=== PATIENT | male | born 1945 | race Caucasian/White ===

== ENCOUNTER → 2017-10-05 10:01 | Outpatient (CLI) | payer OTHER, SELFPAY ==
[2017-08-17 11:42] VITALS: TEMP 36.1
[2017-10-05 10:50] LABS: Add Manual Diff / Slide Review NO; Basophils Percent Auto 1.2 % (0-2); Eosinophils Percent Auto 2.9 % (2-4); Hematocrit 45.6 % (41-53); Hemoglobin 15.3 g/dL (13.5-17.5); Mean Corpuscular HGB Conc 33.6 % (30-36); Mean Corpuscular Hemoglobin 32.6 PG (26-34); Mean Corpuscular Volume 96.9 fL (80-100); Monocytes Percent Auto 11.7 % (3-14); Neutrophils Absolute Auto 2300 /uL (3000-5900); Neutrophils Percent Auto 63.2 % (50-75); Platelet Count 141 X10^3/uL (150-400); Red Cell Distribution Width 14.2 % (11.6-14.8); White Blood Cell Count 3.7 X10^3/uL (4.5-11.0)
[2017-10-05 11:19] LABS: Alanine Aminotransferase 36 IU/L (21-72); Albumin 4.1 g/dL (3.5-5.0); Albumin Globulin Ratio 1.8 (1.0-2.8); Alkaline Phosphatase 43 U/L (38-126); Aspartate Aminotransferase 39 IU/L (17-59); Blood Urea Nitrogen 22 mg/dL (9-20); Calcium 8.9 mg/dL (8.4-10.2); Carbon Dioxide 31 mmol/L (22-32); Chloride 102 mmol/L (98-107); Estimated Glomerular Filt Rate > 60.0 mL/min (>60); Globulin 2.3 g/dL (1.7-4.1); Glucose 97 mg/dL (80-110); HEMOLYSIS < 15 (0-50); Potassium 4.7 mmol/L (3.4-5.1); Sodium 141 mmol/L (137-145); Total Protein 6.4 g/dL (6.3-8.2)
[2017-10-07 08:19] LABS: Miscellaneous to Univ of WA SEE SEPERATE REPORT
== END ==
PROVIDERS: Family Provider Family Medicine; PCP Family Medicine; Visit Provider Nurse Practitioner Gerontology
DX: C92.10 Chronic myeloid leukemia, BCR/ABL-positive, not having achieved remission (principal)
CPT/HCPCS: 36415; 80053; 81206; 85025

== ENCOUNTER → 2017-11-16 10:47 | Outpatient (CLI) | payer OTHER, SELFPAY ==
[2017-11-19 09:24] LABS: Miscellaneous to Univ of WA SEE SEPERATE REPORT
== END ==
PROVIDERS: Family Provider Family Medicine; PCP Family Medicine; Visit Provider Nurse Practitioner Gerontology
DX: C92.10 Chronic myeloid leukemia, BCR/ABL-positive, not having achieved remission (principal)
CPT/HCPCS: 36415; 81206

== ENCOUNTER → 2017-12-15 09:26 | Outpatient (CLI) | payer OTHER, SELFPAY ==
[2017-12-18 12:55] LABS: Miscellaneous to Univ of WA SEE SEPERATE REPORT
== END ==
PROVIDERS: Family Provider Family Medicine; PCP Family Medicine; Visit Provider Nurse Practitioner Gerontology
DX: C92.10 Chronic myeloid leukemia, BCR/ABL-positive, not having achieved remission (principal)
CPT/HCPCS: 36415; 81206

== ENCOUNTER → 2018-03-01 10:52 | Outpatient (CLI) | payer OTHER, SELFPAY ==
--- NOTE | 2018-02-26 15:09 | ONC.SCHED ---
DR PERDUE ORDERED BRCA TESTING FOR 03/01/18. TESTING WAS DONE IN NOVEMBER AT . DR. MUNOZ PUT OFF UNTIL MARCH WHEN ACTUALLY DUE
[2018-03-01 12:02] LABS: Add Manual Diff / Slide Review NO; Basophils Percent Auto 1.3 % (0-2); Eosinophils Percent Auto 2.6 % (2-4); Hematocrit 45.4 % (41-53); Hemoglobin 15.5 g/dL (13.5-17.5); Lymphocytes Percent Auto 21.9 % (25-40); Mean Corpuscular HGB Conc 34.2 % (30-36); Mean Corpuscular Hemoglobin 34.2 PG (26-34); Mean Corpuscular Volume 100.2 fL (80-100); Monocytes Percent Auto 12.4 % (3-14); Neutrophils Absolute Auto 2400 /uL (3000-5900); Neutrophils Percent Auto 61.8 % (50-75); Platelet Count 164 X10^3/uL (150-400); Red Blood Cell Count 4.54 X10^6/uL (4.5-5.9); Red Cell Distribution Width 14.4 % (11.6-14.8); White Blood Cell Count 3.9 X10^3/uL (4.5-11.0)
[2018-03-01 12:37] LABS: Alanine Aminotransferase 37 IU/L (21-72); Albumin 4.3 g/dL (3.5-5.0); Alkaline Phosphatase 44 U/L (38-126); Aspartate Aminotransferase 34 IU/L (17-59); Bilirubin Total 0.6 mg/dL (0.2-1.3); Blood Urea Nitrogen 16 mg/dL (9-20); Calcium 9.2 mg/dL (8.4-10.2); Carbon Dioxide 30 mmol/L (22-32); Chloride 101 mmol/L (98-107); Estimated Glomerular Filt Rate > 60.0 mL/min (>60); Globulin 2.2 g/dL (1.7-4.1); Glucose 101 mg/dL (80-110); HEMOLYSIS 26 (0-50); Potassium 4.9 mmol/L (3.4-5.1); Sodium 139 mmol/L (137-145); Total Protein 6.5 g/dL (6.3-8.2)
[2018-03-01 14:35] LABS: Thyroid Stimulating Hormone 2.71 uIU/mL (0.47-4.68)
[2018-03-10 14:58] LABS: Miscellaneous to Univ of WA SEE SEPERATE REPORT
== END ==
PROVIDERS: Internal Medicine Hematology & Oncology; Family Provider Family Medicine; PCP Family Medicine
DX: C92.11 Chronic myeloid leukemia, BCR/ABL-positive, in remission (principal); E29.1 Testicular hypofunction; R97.20 Elevated prostate specific antigen [PSA]
CPT/HCPCS: 36415; 80053; 81206; 84443; 85025

== ENCOUNTER → 2018-06-30 08:58 | Outpatient (CLI) | payer OTHER, SELFPAY ==
[2018-06-30 09:41] LABS: Add Manual Diff / Slide Review NO; Basophils Absolute Auto 100 /uL (0-100); Basophils Percent Auto 1.4 % (0-2); Eosinophils Absolute Auto 200 /uL (0-450); Eosinophils Percent Auto 5.9 % (2-4); Hematocrit 47.9 % (41-53); Hemoglobin 15.8 g/dL (13.5-17.5); Lymphocytes Absolute Auto 800 /uL (1100-4500); Lymphocytes Percent Auto 19.5 % (25-40); Mean Corpuscular Hemoglobin 32.5 PG (26-34); Mean Corpuscular Volume 98.3 fL (80-100); Monocytes Absolute Auto 500 /uL (0-900); Neutrophils Absolute Auto 2400 /uL (1500-7000); Neutrophils Percent Auto 60.2 % (50-75); Platelet Count 178 X10^3/uL (150-400); Red Blood Cell Count 4.88 X10^6/uL (4.5-5.9); Red Cell Distribution Width 14.8 % (11.6-14.8); White Blood Cell Count 3.9 X10^3/uL (4.5-11.0)
[2018-06-30 09:53] LABS: Alanine Aminotransferase 33 IU/L (21-72); Albumin 4.2 g/dL (3.5-5.0); Alkaline Phosphatase 44 U/L (38-126); Aspartate Aminotransferase 32 IU/L (17-59); Bilirubin Total 0.8 mg/dL (0.2-1.3); Bilirubin Unconjugated 0.5 mg/dL (0.0-1.1); Globulin 2.1 g/dL (1.7-4.1); HEMOLYSIS 17 (0-50); Total Protein 6.3 g/dL (6.3-8.2)
[2018-07-03 18:56] LABS: Testosterone Free 70.5 pg/mL (30.0-135.0); Testosterone Total 554 ng/dL (250-1100)
== END ==
PROVIDERS: Family Provider Family Medicine; PCP Family Medicine; Visit Provider Urology
DX: E29.1 Testicular hypofunction (principal)
CPT/HCPCS: 36415; 80076; 84402; 84403; 85025

== ENCOUNTER → 2019-06-10 08:40 | Outpatient (CLI) | payer OTHER, SELFPAY ==
[2019-06-10 09:41] LABS: Hematocrit 44.1 % (41-53); Hemoglobin 14.8 g/dL (13.5-17.5)
[2019-06-10 09:53] LABS: Alanine Aminotransferase 19 IU/L (<50); Albumin Globulin Ratio 1.7 (1.0-2.8); Alkaline Phosphatase 40 U/L (38-126); Aspartate Aminotransferase 31 IU/L (17-59); Bilirubin Total 0.6 mg/dL (0.2-1.3); Blood Urea Nitrogen 22 mg/dL (9-20); Calcium 8.6 mg/dL (8.4-10.2); Carbon Dioxide 30 mmol/L (22-32); Chloride 104 mmol/L (98-107); Cholesterol 157 mg/dL (140-199); Estimated Glomerular Filt Rate > 60.0 mL/min (>60); Globulin 2.4 g/dL (1.7-4.1); Glucose 99 mg/dL (80-110); HDL Cholesterol 27 mg/dL (40-60); HEMOLYSIS < 15 (0-50); LDL Cholesterol Calculated 114 mg/dL (<100); Potassium 4.6 mmol/L (3.4-5.1); Sodium 141 mmol/L (137-145); Total Protein 6.4 g/dL (6.3-8.2); Triglycerides 79 mg/dL (35-150)
[2019-06-14 21:14] LABS: Testosterone Free 7.1 pg/mL (30.0-135.0); Testosterone Total 71 ng/dL (250-1100)
== END ==
PROVIDERS: Family Provider Student in an Organized Health Care Education/Training Program; PCP Student in an Organized Health Care Education/Training Program; Referring Provider Urology; Visit Provider Urology
DX: E29.1 Testicular hypofunction (principal)
CPT/HCPCS: 36415; 80053; 80061; 84402; 84403; 85014; 85018

== ENCOUNTER → 2019-07-02 08:06 | Outpatient (CLI) | payer OTHER, SELFPAY ==
[2019-07-02 08:26] LABS: Add Manual Diff / Slide Review NO; Basophils Absolute Auto 0 /uL (0-100); Basophils Percent Auto 0.7 % (0-2); Eosinophils Absolute Auto 100 /uL (0-450); Eosinophils Percent Auto 3.8 % (2-4); Hematocrit 45.1 % (41-53); Lymphocytes Absolute Auto 700 /uL (1100-4500); Lymphocytes Percent Auto 19.5 % (25-40); Mean Corpuscular HGB Conc 33.2 % (30-36); Mean Corpuscular Hemoglobin 33.6 PG (26-34); Mean Corpuscular Volume 101.2 fL (80-100); Monocytes Absolute Auto 400 /uL (0-900); Monocytes Percent Auto 10.8 % (3-14); Neutrophils Absolute Auto 2500 /uL (1500-7000); Neutrophils Percent Auto 65.2 % (50-75); Platelet Count 177 X10^3/uL (150-400); Red Blood Cell Count 4.46 X10^6/uL (4.5-5.9); Red Cell Distribution Width 14.4 % (11.6-14.8); White Blood Cell Count 3.8 X10^3/uL (4.5-11.0)
[2019-07-02 08:37] LABS: Alanine Aminotransferase 19 IU/L (<50); Albumin Globulin Ratio 1.7 (1.0-2.8); Alkaline Phosphatase 44 U/L (38-126); Aspartate Aminotransferase 32 IU/L (17-59); BUN Creatinine Ratio 16.8 (6-22); Bilirubin Total 0.7 mg/dL (0.2-1.3); Blood Urea Nitrogen 17 mg/dL (9-20); Calcium 8.6 mg/dL (8.4-10.2); Carbon Dioxide 30 mmol/L (22-32); Chloride 105 mmol/L (98-107); Estimated Glomerular Filt Rate > 60.0 mL/min (>60); Globulin 2.4 g/dL (1.7-4.1); Glucose 113 mg/dL (80-110); HEMOLYSIS < 15 (0-50); Potassium 4.8 mmol/L (3.4-5.1); Sodium 141 mmol/L (137-145); Total Protein 6.4 g/dL (6.3-8.2)
[2019-07-11 14:31] LABS: Miscellaneous to LabCorp SEE SEPERATE REPORT
== END ==
PROVIDERS: Family Provider Student in an Organized Health Care Education/Training Program; PCP Student in an Organized Health Care Education/Training Program; Referring Provider Urology; Visit Provider Urology
DX: C92.11 Chronic myeloid leukemia, BCR/ABL-positive, in remission (principal)
CPT/HCPCS: 36415; 80053; 81206; 81207; 85025

== ENCOUNTER → 2019-07-05 08:27 | Outpatient (CLI) | payer OTHER, SELFPAY ==
[2019-07-09 12:15] LABS: Testosterone Total 550.2 ng/dL (264.0-916.0)
== END ==
PROVIDERS: Family Provider Student in an Organized Health Care Education/Training Program; PCP Student in an Organized Health Care Education/Training Program; Referring Provider Urology; Visit Provider Urology
DX: E29.1 Testicular hypofunction (principal)
CPT/HCPCS: 36415; 84402; 84403

== ENCOUNTER → 2020-01-18 09:27 | Outpatient (CLI) | payer OTHER, SELFPAY ==
[2020-01-18 10:26] LABS: Add Manual Diff / Slide Review NO; Basophils Absolute Auto 0 /uL (0-100); Basophils Percent Auto 0.7 % (0-2); Eosinophils Absolute Auto 100 /uL (0-450); Eosinophils Percent Auto 3.6 % (2-4); Hematocrit 41.3 % (41-53); Hemoglobin 14.1 g/dL (13.5-17.5); Lymphocytes Absolute Auto 800 /uL (1100-4500); Lymphocytes Percent Auto 20.2 % (25-40); Mean Corpuscular HGB Conc 34.1 % (30-36); Mean Corpuscular Hemoglobin 34.3 PG (26-34); Mean Corpuscular Volume 100.8 fL (80-100); Monocytes Absolute Auto 400 /uL (0-900); Monocytes Percent Auto 10.8 % (3-14); Neutrophils Absolute Auto 2500 /uL (1500-7000); Neutrophils Percent Auto 64.7 % (50-75); Platelet Count 163 X10^3/uL (150-400); Red Cell Distribution Width 14.3 % (11.6-14.8); White Blood Cell Count 3.9 X10^3/uL (4.5-11.0)
[2020-01-18 11:33] LABS: Alanine Aminotransferase 18 IU/L (<50); Albumin 3.6 g/dL (3.5-5.0); Albumin Globulin Ratio 1.8 (1.0-2.8); Alkaline Phosphatase 44 U/L (38-126); Aspartate Aminotransferase 29 IU/L (17-59); BUN Creatinine Ratio 21.4 (6-22); Bilirubin Total 0.6 mg/dL (0.2-1.3); Blood Urea Nitrogen 21 mg/dL (9-20); Calcium 8.5 mg/dL (8.4-10.2); Carbon Dioxide 33 mmol/L (22-32); Chloride 102 mmol/L (98-107); Cholesterol 139 mg/dL (140-199); Estimated Glomerular Filt Rate > 60.0 mL/min (>60); Glucose 91 mg/dL (80-110); HDL Cholesterol 27 mg/dL (40-60); HEMOLYSIS < 15 (0-50); LDL Cholesterol Calculated 79 mg/dL (<100); Potassium 4.7 mmol/L (3.4-5.1); Sodium 138 mmol/L (137-145); Total Protein 5.6 g/dL (6.3-8.2); Triglycerides 164 mg/dL (35-150)
[2020-01-18 11:52] LABS: Prostate Specific Antigen 3.28 ng/mL (0.10-4.00)
[2020-01-18 11:55] LABS: Testosterone 480 ng/dL (71.8-623)
== END ==
PROVIDERS: Family Provider Student in an Organized Health Care Education/Training Program; PCP Student in an Organized Health Care Education/Training Program; Referring Provider Urology; Visit Provider Urology
DX: E29.1 Testicular hypofunction (principal); I10 Essential (primary) hypertension
CPT/HCPCS: 36415; 80053; 80061; 84153; 84403; 85025

== ENCOUNTER → 2020-02-29 09:07 | Outpatient (CLI) | payer OTHER, SELFPAY ==
[2020-02-29 09:35] LABS: Add Manual Diff / Slide Review NO; Basophils Absolute Auto 0 /uL (0-100); Basophils Percent Auto 0.7 % (0-2); Eosinophils Absolute Auto 100 /uL (0-450); Eosinophils Percent Auto 2.9 % (2-4); Hematocrit 40.8 % (41-53); Hemoglobin 13.6 g/dL (13.5-17.5); Lymphocytes Absolute Auto 800 /uL (1100-4500); Lymphocytes Percent Auto 20.1 % (25-40); Mean Corpuscular HGB Conc 33.3 % (30-36); Mean Corpuscular Hemoglobin 33.4 PG (26-34); Mean Corpuscular Volume 100.4 fL (80-100); Monocytes Absolute Auto 400 /uL (0-900); Monocytes Percent Auto 10.7 % (3-14); Neutrophils Absolute Auto 2600 /uL (1500-7000); Neutrophils Percent Auto 65.6 % (50-75); Platelet Count 162 X10^3/uL (150-400); Red Blood Cell Count 4.06 X10^6/uL (4.5-5.9); Red Cell Distribution Width 13.7 % (11.6-14.8); White Blood Cell Count 3.9 X10^3/uL (4.5-11.0)
[2020-02-29 09:43] LABS: Alanine Aminotransferase 22 IU/L (<50); Albumin 3.7 g/dL (3.5-5.0); Albumin Globulin Ratio 1.7 (1.0-2.8); Alkaline Phosphatase 48 U/L (38-126); Aspartate Aminotransferase 34 IU/L (17-59); BUN Creatinine Ratio 20.2 (6-22); Bilirubin Total 0.7 mg/dL (0.2-1.3); Blood Urea Nitrogen 21 mg/dL (9-20); Calcium 8.5 mg/dL (8.4-10.2); Carbon Dioxide 35 mmol/L (22-32); Chloride 101 mmol/L (98-107); Estimated Glomerular Filt Rate > 60.0 mL/min (>60); Globulin 2.2 g/dL (1.7-4.1); Glucose 94 mg/dL (80-110); HEMOLYSIS < 15 (0-50); Potassium 4.3 mmol/L (3.4-5.1); Sodium 136 mmol/L (137-145); Total Protein 5.9 g/dL (6.3-8.2)
[2020-03-12 15:05] LABS: Interpretation Negative (.)
== END ==
PROVIDERS: Internal Medicine Hematology & Oncology; Family Provider Student in an Organized Health Care Education/Training Program; PCP Student in an Organized Health Care Education/Training Program; Referring Provider Urology; Visit Provider Urology
DX: C92.11 Chronic myeloid leukemia, BCR/ABL-positive, in remission (principal); E29.1 Testicular hypofunction
CPT/HCPCS: 36415; 80053; 81206; 81207; 85025

== ENCOUNTER → 2020-03-07 07:13 | Outpatient (CLI) | payer OTHER, SELFPAY ==
--- NOTE | 2020-03-07 | DI.US.S_ITS ---
PROCEDURE: US SCROTUM INDICATIONS: RIGHT TESTICLE MASS TECHNIQUE: Real-time scanning was performed of the scrotum and testicles, with image documentation. Color and pulse Doppler interrogation was performed of both testicles. COMPARISON: None. FINDINGS: Right: Testicle is normal in size at 3.6 x 1.9 x 2.5 cm, and heterogeneous in echotexture. Epididymis is normal in overall size and morphology. There is a small right-sided hydrocele. A right-sided varicocele is also seen. Overlying scrotal skin is normal in thickness. Left: Testicle is normal in size at 3.2 x 2 x 2.5 cm, and heterogeneous in echotexture. Epididymis is normal in overall size and morphology. No hydrocele or varicoceles. Overlying scrotal skin is normal in thickness. Doppler: Color and pulse Doppler demonstrate normal and symmetric arterial flow in both testicles. IMPRESSION: No intratesticular masses are seen. However, both testicles demonstrate a heterogeneous appearance. Right-sided hydrocele and varicocele noted. Dictated by: Polo Meier M.D. on 03/09/2020 at 10:20 Approved by: Polo Meier M.D. on 03/09/2020 at 10:24
== END ==
PROVIDERS: Family Provider Student in an Organized Health Care Education/Training Program; PCP Student in an Organized Health Care Education/Training Program; Referring Provider Family Medicine; Visit Provider Family Medicine
DX: N50.89 Other specified disorders of the male genital organs (principal); N43.3 Hydrocele, unspecified; I86.1 Scrotal varices
CPT/HCPCS: 76870

== ENCOUNTER 2020-03-25 09:46 | Emergency (ER) | payer OTHER, SELFPAY ==
[2020-03-25 09:55] VITALS: BP 150/68; PULSE 90; RESP 16; TEMP 36.9; O2SAT 97
--- NOTE | 2020-03-25 10:06 | ED_ITS ---
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 Notes that he had some emesis on the 1st day and then after breakfast today had some more emesis. Describes no blood in either the stool or emesis. He notes that with the Gleevec he typically takes an Imodium daily to avoid diarrhea and describes the current watery volumes of stool is quite a bit different from the usual loose stool secondary to the medication. He notes no fevers, no abdominal pain, no dizziness, orthostasis, orthopnea, headache, fever, cough, chills or chest pain. Related Data Home Medications Medication Instructions Recorded Confirmed CA PANTOTHENATE/FOLIC ACID/VIT 1 tab PO QDAY #0 12/01/12 09/14/18 (MULTIVITAMIN) CHOLECALCIFEROL (VITAMIN D3) 5,000 iu PO Q DAY #0 12/01/12 09/14/18 (Vitamin D) Fish Oil (#OMEGA 3) 1,000 mg PO Q DAY #0 12/01/12 09/14/18 Saw [place] 450 mg PO QDAY #0 12/01/12 09/14/18 anastrozole 1 mg PO EVERY OTHER DAY #0 12/01/12 09/14/18 testosterone [AndroGel] 1 TP DAILY #0 12/01/12 tyrosine PO QDAY #0 12/08/16 Cbd Cream 09/14/18 Magnesium Oil 09/14/18 magnesium oxide 250 mg PO DAILY 09/14/18 09/14/18 Previous Rx's Medication Instructions Recorded imatinib [Gleevec] 800 mg PO Q DAY #180 tab 03/19/20 ondansetron 4 mg PO Q8H PRN #20 tab 03/25/20 Allergies Allergy/AdvReac Type Severity Reaction Status Date / Time naproxen [NAPROXEN] Allergy Severe SWELLING Verified 03/16/18 11:16 ALL OVER BODY lactose [LACTOSE] Allergy Unknown INDIGESTION, Verified 03/16/18 11:16 LOOSE STOOLS Review of Systems Review of Systems Narrative: Remainder of review of systems including constitutional, ENT, cardiovascular, respiratory, GI, , musculoskeletal, skin, neurologic and psychiatric systems reviewed and are unremarkable except as noted in HPI. Patient History Medical History CML in remission Social History Smoking Status: Never smoker Smoking Status: Never smoker alcohol intake frequency: 0-2 drinks per day Substance Use Type: does not use Exam Narrative Exam Narrative: General: Healthy appearing, in no acute distress. Able to give a complete and coherent history. Well-nourished well-developed HEENT: Moist mucous membranes, normal sclera with reactive pupils, Neck: No JVD, supple Respiratory: Lungs are clear to auscultation, no wheezing no rales no rhonchi. Full and symmetrical air movement Cardiac: Regular rate and rhythm no murmurs no bruits Abdomen: Soft, nontender good bowel tones, no flank pain Skin: Warm and dry, no rashes Neurologic: Grossly neurologically intact with no obvious asymmetries or abnormalities Extremities: No trauma, well perfused Psych: Cooperative, appropriate insight and affect Initial Vital Signs Initial Vital Signs: Vital Signs Temperature 98.5 F 03/25/20 09:55 Pulse Rate 90 03/25/20 09:55 Respiratory Rate 16 03/25/20 09:55 Blood Pressure 150/68 H 03/25/20 09:55 Pulse Oximetry 97 03/25/20 09:55 Course Orders Ordered: ED Orders 03/25/20 10:15 GI Panel (Film Array) Stat 03/25/20 10:30 COVID19 Stat Complete Blood Count AUTO DIFF Stat Comprehensive Metabolic Panel Stat Magnesium Stat Discontinued Medications Sodium Chloride (Normal Saline 0.9%) 1,000 mls @ 1,000 mls/hr IV BOLUS ONE Stop: 03/25/20 11:08 Last Infusion: 03/25/20 12:11 Dose: 0 mls/hr Documented by: Admin: 03/25/20 10:21 Dose: 1,000 mls/hr Documented by: LASHAWN Ondansetron HCl (Ondansetron 4 Mg/2 Ml Inj) 4 mg IV NOW ONE Stop: 03/25/20 10:10 Last Admin: 03/25/20 10:21 Dose: 4 mg Documented by: LASHAWN Vital Signs Vital signs: Vital Signs - 8 hr 03/25/20 09:55 03/25/20 11:56 Temperature 98.5 F Pulse Rate 90 80 Respiratory Rate 16 Blood Pressure 150/68 H 107/56 L Pulse Oximetry 97 95 MDM - Nausea/Vomiting/Diarrhea Medical Records Attestation: I reviewed the patient's medical records. Lab Data Attestation: I reviewed the patient's lab results. Result diagrams: 03/25/20 10:30 03/25/20 10:30 Labs: Lab Results 03/25/20 03/25/20 03/25/20 Range/Units 10:15 10:30 10:30 WBC 5.7 (4.5-11.0) X10^3/uL RBC 4.31 L (4.5-5.9) X10^6/uL Hgb 14.4 (13.5-17.5) g/dL Hct 43.4 (41-53) % MCV 100.7 H (80-100) fL MCH 33.5 (26-34) PG MCHC 33.3 (30-36) % RDW 13.8 (11.6-14.8) % Plt Count 173 (150-400) X10^3/uL Neut % (Auto) 79.9 H (50-75) % Lymph % (Auto) 12.3 L (25-40) % [place] % (Auto) 6.4 (3-14) % Eos % (Auto) 1.2 L (2-4) % Baso % (Auto) 0.2 (0-2) % Neut # (Auto) 4600 (7075-6728) /uL Lymph # (Auto) 700 L (3432-2481) /uL [place] # (Auto) 400 (0-900) /uL Eos # (Auto) 100 (0-450) /uL Baso # (Auto) 0 (0-100) /uL Sodium 137 (137-145) mmol/L Potassium 4.2 (3.4-5.1) mmol/L Chloride 103 (98-107) mmol/L Carbon Dioxide 31 (22-32) mmol/L BUN 21 H (9-20) mg/dL Creatinine 1.01 (0.66-1.25) mg/dL Estimated GFR > 60.0 (>60) mL/min BUN/Creatinine Ratio 20.8 (6-22) Glucose 139 H (80-110) mg/dL Calcium 8.6 (8.4-10.2) mg/dL Magnesium 2.0 (1.6-2.3) mg/dL Total Bilirubin 0.7 (0.2-1.3) mg/dL AST 36 (17-59) IU/L ALT 27 (<50) IU/L Alkaline Phosphatase 48 (38-126) U/L Total Protein 6.4 (6.3-8.2) g/dL Albumin 4.0 (3.5-5.0) g/dL Globulin 2.4 (1.7-4.1) g/dL Albumin/Globulin Ratio 1.7 (1.0-2.8) Stl C. cayetanensis PCR Not detected (Not Detect) Stool Rotavirus (PCR) Not detected (Not Detect) Stool Adenovirus (PCR) Not detected (Not Detect) Stool Astrovirus (PCR) Not detected (Not Detect) Stool Cryptosporidium PCR Not detected (Not Detect) Stl E.coli Shiga Tox PCR Not detected (Not Detect) St Sh/Enteroin Ecoli PCR Not detected (Not Detect) Stool E coli O157 PCR Not detected (Not Detect) Stl Enterotoxigenic E PCR Not detected (Not Detect) Stool EPEC (PCR) Not detected (Not Detect) Stl E. histolytica PCR Not detected (Not Detect) Stool Giardia Lamblia PCR Not detected (Not Detect) Stool Sapovirus (PCR) Not detected (Not Detect) Stl P. shigelloides PCR Not detected (Not Detect) St Y.enterocolitica PCR Not detected (Not Detect) Stool Vibrio (PCR) Not detected (Not Detect) Stl Vibrio cholerae PCR Not detected (Not Detect) Stl Enteroaggr Ecoli PCR Not detected (Not Detect) Stl Norovirus GI/GII PCR Not detected (Not Detect) Campylobacter (PCR) Not detected (Not Detect) C. difficile Tox (PCR) Not detected (Not Detect) COVID-19 PCR (Negative) Salmonella (PCR) Not detected (Not Detect) 03/25/20 Range/Units 10:30 WBC (4.5-11.0) X10^3/uL RBC (4.5-5.9) X10^6/uL Hgb (13.5-17.5) g/dL Hct (41-53) % MCV (80-100) fL MCH (26-34) PG MCHC (30-36) % RDW (11.6-14.8) % Plt Count (150-400) X10^3/uL Neut % (Auto) (50-75) % Lymph % (Auto) (25-40) % [place] % (Auto) (3-14) % Eos % (Auto) (2-4) % Baso % (Auto) (0-2) % Neut # (Auto) (0399-9067) /uL Lymph # (Auto) (1053-3700) /uL [place] # (Auto) (0-900) /uL Eos # (Auto) (0-450) /uL Baso # (Auto) (0-100) /uL Sodium (137-145) mmol/L Potassium (3.4-5.1) mmol/L Chloride (98-107) mmol/L Carbon Dioxide (22-32) mmol/L BUN (9-20) mg/dL Creatinine (0.66-1.25) mg/dL Estimated GFR (>60) mL/min BUN/Creatinine Ratio (6-22) Glucose (80-110) mg/dL Calcium (8.4-10.2) mg/dL Magnesium (1.6-2.3) mg/dL Total Bilirubin (0.2-1.3) mg/dL AST (17-59) IU/L ALT (<50) IU/L Alkaline Phosphatase (38-126) U/L Total Protein (6.3-8.2) g/dL Albumin (3.5-5.0) g/dL Globulin (1.7-4.1) g/dL Albumin/Globulin Ratio (1.0-2.8) Stl C. cayetanensis PCR (Not Detect) Stool Rotavirus (PCR) (Not Detect) Stool Adenovirus (PCR) (Not Detect) Stool Astrovirus (PCR) (Not Detect) Stool Cryptosporidium PCR (Not Detect) Stl E.coli Shiga Tox PCR (Not Detect) St Sh/Enteroin Ecoli PCR (Not Detect) Stool E coli O157 PCR (Not Detect) Stl Enterotoxigenic E PCR (Not Detect) Stool EPEC (PCR) (Not Detect) Stl E. histolytica PCR (Not Detect) Stool Giardia Lamblia PCR (Not Detect) Stool Sapovirus (PCR) (Not Detect) Stl P. shigelloides PCR (Not Detect) St Y.enterocolitica PCR (Not Detect) Stool Vibrio (PCR) (Not Detect) Stl Vibrio cholerae PCR (Not Detect) Stl Enteroaggr Ecoli PCR (Not Detect) Stl Norovirus GI/GII PCR (Not Detect) Campylobacter (PCR) (Not Detect) C. difficile Tox (PCR) (Not Detect) COVID-19 PCR Negative (Negative) Salmonella (PCR) (Not Detect) MDM Narrative Medical decision making narrative: 74-year-old gentleman with vomiting and diarrhea. Labs are unremarkable. Nausea and vomiting have been controlled with Zofran. Stool sample does not suggest significant pathology that needs to be treated and does suggest that he can continue with his Imodium. No signs of surgical abdomen or intra-abdominal process. No signs of sepsis. He can use increased amounts of Imodium over the next couple of days to help with the diarrhea and I will also give him a prescription for Zofran to help with the nausea. Questions are answered. He is safe for home discharge Discharge Plan Departure Patient Disposition: Home Clinical Impression: Nausea, Vomiting, and Diarrhea Instructions: DI for Vomiting -- Adult Activity Restrictions/Additional Instructions: Thank you for coming in today Your lab work was reassuring. There is no evidence of kidney or liver dysfunction. No evidence of significant bacterial infection. Your stool sample did not show any significant pathology specifically no obvious viruses that typically cause nausea vomiting and diarrhea and no Salmonella. Your COVID test was also unremarkable. At this point, I think it is fair to simply treat your symptoms and allow your body to recover. You can use up to 6 Imodium tablets daily for the diarrhea. I have also given you a prescription for Zofran/ondansetron to help with nausea. 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 If you have worsening symptoms or new findings, please feel free to return and I am happy to re-evaluate Prescriptions: New ondansetron 4 mg tablet,disintegrating 4 mg PO Q8H PRN (Reason: nausea and vomiting) Qty: 20 RF: 0 No Action anastrozole 1 MG tablet 1 mg PO EVERY OTHER DAY Qty: 0 RF: 0 testosterone [AndroGel] 1 % gel in packet 1 TP DAILY Qty: 0 RF: 0 CA PANTOTHENATE/FOLIC ACID/VIT (MULTIVITAMIN) 1 tab PO QDAY Qty: 0 RF: 0 CHOLECALCIFEROL (VITAMIN D3) (Vitamin D) 5,000 iu PO Q DAY Qty: 0 RF: 0 Fish Oil (#OMEGA 3) 1,000 mg PO Q DAY Qty: 0 RF: 0 Saw [place] 450 mg PO QDAY Qty: 0 RF: 0 tyrosine 500 MG capsule PO QDAY Qty: 0 RF: 0 magnesium oxide 250 mg magnesium Tablet 250 mg PO DAILY RF: 0 Cbd Cream RF: 0 Magnesium Oil RF: 0 imatinib [Gleevec] 400 MG tablet 800 mg PO Q DAY Qty: 180 RF: 3 Referrals: Ann Marie Weiner MD [Primary Care Provider] -
[2020-03-25] MEDS: ONDANSETRON 4 MG/2 ML INJ IV (10:21)
[2020-03-25] MEDS: SODIUM CHLORIDE 0.9% 1,000 ML 1000 ML IV (10:21)
[2020-03-25 10:48] LABS: Add Manual Diff / Slide Review NO; Basophils Absolute Auto 0 /uL (0-100); Basophils Percent Auto 0.2 % (0-2); Eosinophils Absolute Auto 100 /uL (0-450); Eosinophils Percent Auto 1.2 % (2-4); Hematocrit 43.4 % (41-53); Hemoglobin 14.4 g/dL (13.5-17.5); Lymphocytes Absolute Auto 700 /uL (1100-4500); Lymphocytes Percent Auto 12.3 % (25-40); Mean Corpuscular HGB Conc 33.3 % (30-36); Mean Corpuscular Hemoglobin 33.5 PG (26-34); Mean Corpuscular Volume 100.7 fL (80-100); Monocytes Absolute Auto 400 /uL (0-900); Monocytes Percent Auto 6.4 % (3-14); Neutrophils Absolute Auto 4600 /uL (1500-7000); Neutrophils Percent Auto 79.9 % (50-75); Platelet Count 173 X10^3/uL (150-400); Red Blood Cell Count 4.31 X10^6/uL (4.5-5.9); Red Cell Distribution Width 13.8 % (11.6-14.8); White Blood Cell Count 5.7 X10^3/uL (4.5-11.0)
[2020-03-25 10:52] LABS: Alanine Aminotransferase 27 IU/L (<50); Albumin Globulin Ratio 1.7 (1.0-2.8); Alkaline Phosphatase 48 U/L (38-126); Aspartate Aminotransferase 36 IU/L (17-59); BUN Creatinine Ratio 20.8 (6-22); Bilirubin Total 0.7 mg/dL (0.2-1.3); Blood Urea Nitrogen 21 mg/dL (9-20); Calcium 8.6 mg/dL (8.4-10.2); Carbon Dioxide 31 mmol/L (22-32); Chloride 103 mmol/L (98-107); Estimated Glomerular Filt Rate > 60.0 mL/min (>60); Globulin 2.4 g/dL (1.7-4.1); Glucose 139 mg/dL (80-110); HEMOLYSIS < 15 (0-50); Potassium 4.2 mmol/L (3.4-5.1); Sodium 137 mmol/L (137-145); Total Protein 6.4 g/dL (6.3-8.2)
[2020-03-25 10:54] LABS: COVID19 -Nasal RAPID Negative (Negative)
[2020-03-25 11:33] LABS: Adenovirus F 40/41 Not Detected (Not Detect); Astrovirus Not Detected (Not Detect); Campylobacter Not Detected (Not Detect); Clostridium difficile toxin AB Not Detected (Not Detect); Cryptosporidium Not Detected (Not Detect); Cyclospora cayetanensis Not Detected (Not Detect); Entamoeba histolytica Not Detected (Not Detect); Enteroaggregative E.coli Not Detected (Not Detect); Enteropathogenic E.coli Not Detected (Not Detect); Enterotoxigenic E.coli It/st Not Detected (Not Detect); Giardia lamblia Not Detected (Not Detect); Norovirus GI/GII Not Detected (Not Detect); Plesiomonsa shigelloides Not Detected (Not Detect); Rotavirus A Not Detected (Not Detect); Salmonella Not Detected (Not Detect); Sapovirus Not Detected (Not Detect); Shiga-like toxin-prod E.coli Not Detected (Not Detect); Shigella/Enteroinvasive E.coli Not Detected (Not Detect); Vibrio Not Detected (Not Detect); Vibrio cholerae Not Detected (Not Detect); Yersinia enterocolitica Not Detected (Not Detect)
[2020-03-25 11:56] VITALS: BP 107/56; PULSE 80; O2SAT 95
[2020-03-25 12:00] VITALS: BP 110/63; PULSE 80; O2SAT 96
[2020-03-25 12:30] VITALS: PULSE 73; O2SAT 95
[2020-03-25 12:51] VITALS: BP 106/57; PULSE 79; O2SAT 97
[2020-03-25 13:11] VITALS: BP 114/61; PULSE 80; RESP 14; TEMP 36.9; O2SAT 100
== END 2020-03-25 13:13 | disposition home or self-care (01) ==
PROVIDERS: Emergency Provider Emergency Medicine; Family Provider Student in an Organized Health Care Education/Training Program; PCP Student in an Organized Health Care Education/Training Program
DX: R11.2 Nausea with vomiting, unspecified (principal); R19.7 Diarrhea, unspecified; C92.11 Chronic myeloid leukemia, BCR/ABL-positive, in remission
CPT/HCPCS: 36415; 80053; 83735; 85025; 87507; 87635; 96361; 96374; 99281; 99284; J2405

== ENCOUNTER 2020-03-27 12:36 | Emergency (ER) | payer OTHER, SELFPAY ==
[2020-03-27] VITALS (12 sets, daily range): BP systolic 123–144; BP diastolic 61–74; PULSE 86–102; RESP 14; TEMP 36.9; O2SAT 95–98; BMI 25.6
--- NOTE | 2020-03-27 13:04 | ED.NAVMDI ---
HPI - Nausea/Vomiting/Diarrhea <Coby Munguiamer, [employer]-BC - Last Filed: 03/27/20 18:48> General Chief complaint: Nausea/Vomiting/Diarrhea Stated complaint: Vomiting, Dysentery Time Seen by Provider: 03/27/20 12:44 Source: patient and family Mode of arrival: Ambulatory Limitations: no limitations History of Present Illness HPI Narrative: The patient is a 74-year-old male nonsmoker with history of CML who presents with a chief complaint of continued diarrhea. He was seen and evaluated at this facility on 03/25 for chief complaint of diarrhea. At that point he had a negative coronavirus test, negative GI panel, CBC and CMP within normal limits with a creatinine of 1.01. He was discharged home with instructions of hydration, ondansetron prescription anti use up to 6 Imodium tabs per day. He states that his loose watery stools continued yesterday and he took a total of 6 Imodium yesterday. He states he took a Zofran in the middle of the night, then vomited. Subsequently he took another Zofran at 9:00 a.m.. He states he has not vomited 4 hours, but continues with frequent stools. He denies any abdominal pain. Denies any fevers muscle aches or chills. He denies any chest pain or shortness of breath. He has not taken anything else to feel better. He denies any lightheadedness or dizziness, but complains of dry mouth. Related Data Home Medications Medication Instructions Recorded Confirmed CA PANTOTHENATE/FOLIC ACID/VIT 1 tab PO QDAY #0 12/01/12 09/14/18 (MULTIVITAMIN) CHOLECALCIFEROL (VITAMIN D3) 5,000 iu PO Q DAY #0 12/01/12 09/14/18 (Vitamin D) Fish Oil (#OMEGA 3) 1,000 mg PO Q DAY #0 12/01/12 09/14/18 Saw [place] 450 mg PO QDAY #0 12/01/12 09/14/18 anastrozole 1 mg PO EVERY OTHER DAY #0 12/01/12 09/14/18 testosterone [AndroGel] 1 TP DAILY #0 12/01/12 tyrosine PO QDAY #0 12/08/16 Cbd Cream 09/14/18 Magnesium Oil 09/14/18 magnesium oxide 250 mg PO DAILY 09/14/18 09/14/18 Previous Rx's Medication Instructions Recorded imatinib [Gleevec] 800 mg PO Q DAY #180 tab 03/19/20 ondansetron 4 mg PO Q8H PRN #20 tab 03/25/20 Allergies Allergy/AdvReac Type Severity Reaction Status Date / Time naproxen [NAPROXEN] Allergy Severe SWELLING Verified 03/27/20 12:56 ALL OVER BODY lactose [LACTOSE] Allergy Unknown INDIGESTION, Verified 03/27/20 12:56 LOOSE STOOLS Review of Systems <JASIEL Rice - Last Filed: 03/27/20 18:48> Review of Systems Narrative: GENERAL: Denies chills, fatigue, malaise, fever, sweats. HEENT: Denies sinus pain, ear pain, sore throat, difficulty swallowing, dizziness. RESPIRATORY: Denies dyspnea, cough, wheezing, hemoptysis, sputum. CARDIOVASCULAR: Denies chest pain, palpitations, orthopnea, edema, GASTROINTESTINAL: See HPI : Denies dysuria, frequency, incontinence, hematuria, urinary retention. MUSCULOSKELETAL: denies weakness, joint pain, or bony pain SKIN: Denies rash, skin lesions, or other NEUROLOGIC: Denies weakness, headache, numbness, change in speech, confusion, seizures, incoordination. PSYCHIATRIC: No concerning psychosocial issues. 12 point review of systems is negative except for those stated above Patient History <JASIEL Rice - Last Filed: 03/27/20 18:48> Medical History CML in remission Social History Smoking Status: Never smoker Smoking Status: Never smoker alcohol intake frequency: 0-2 drinks per day Substance Use Type: does not use Exam <JASIEL Rice - Last Filed: 03/27/20 18:48> Narrative Exam Narrative: GENERAL: This is a well-nourished, well-developed patient, in no acute distress HEAD: Atraumatic. Normocephalic. No temporal or scalp tenderness. EYES: Pupils equal round and reactive. Extraocular motions intact. No scleral icterus. No injection or drainage. ENT: Nose without bleeding, purulent drainage or septal hematoma. Throat without erythema, tonsillar hypertrophy or exudate. Uvula midline. Airway patent. NECK: Trachea midline. No JVD or lymphadenopathy. Supple, nontender, no meningeal signs. CARDIOVASCULAR: Regular rate and rhythm without murmurs, gallops, or rubs. RESPIRATORY: Clear to auscultation. Breath sounds equal bilaterally. No wheezes, rales, or rhonchi. GASTROINTESTINAL: Abdomen soft, non-tender, nondistended. No hepato-splenomegaly, or palpable masses. No guarding. Active bowel sounds all 4 quadrants EXTREMITIES: No clubbing, cyanosis, or edema. No joint tenderness, effusion, or edema noted. BACK: Nontender without deformity or crepitance. No flank tenderness. NEURO: AOx3. Clear speech. No gross cranial nerve deficit. SKIN: No rash or erythema on visible skin Initial Vital Signs Initial Vital Signs: Vital Signs Pulse Rate 102 H 03/27/20 12:45 Blood Pressure 144/74 H 03/27/20 12:45 Pulse Oximetry 96 03/27/20 12:45 <Alem Dotson MD - Last Filed: 03/27/20 18:50> Initial Vital Signs Initial Vital Signs: Vital Signs Pulse Rate 102 H 03/27/20 12:45 Blood Pressure 144/74 H 03/27/20 12:45 Pulse Oximetry 96 03/27/20 12:45 Scores <JASIEL Rice - Last Filed: 03/27/20 18:48> GCS Perry coma scale eye opening: Spontaneous Johnson coma scale verbal response: Orientated Perry coma scale motor response: Obey commands Johnson coma scale total score: 15 Course <JASIEL Rice - Last Filed: 03/27/20 18:48> Orders Ordered: ED Orders 03/27/20 13:15 Complete Blood Count AUTO DIFF Stat Comprehensive Metabolic Panel Stat Magnesium Stat Discontinued Medications Sodium Chloride (Normal Saline 0.9%) 1,000 mls @ 1,000 mls/hr IV BOLUS ONE Stop: 03/27/20 13:58 Last Infusion: 03/27/20 14:45 Dose: 0 mls/hr Documented by: Admin: 03/27/20 13:35 Dose: 1,000 mls/hr Documented by: FELICIANO Sodium Chloride (Normal Saline 0.9%) 1,000 mls @ 1,000 mls/hr IV BOLUS ONE Stop: 03/27/20 15:28 Last Infusion: 03/27/20 16:31 Dose: 0 mls/hr Documented by: Admin: 03/27/20 14:50 Dose: 1,000 mls/hr Documented by: FELICIANO Ondansetron HCl (Ondansetron 4 Mg/2 Ml Inj) 4 mg IV NOW ONE Stop: 03/27/20 13:00 Last Admin: 03/27/20 13:35 Dose: 4 mg Documented by: FELICIANO Potassium Chloride (Potassium Chloride 20 Meq Tab) 40 meq PO NOW ONE Stop: 03/27/20 14:51 Last Admin: 03/27/20 15:26 Dose: 40 meq Documented by: FELICIANO Vital Signs Vital signs: Vital Signs - 8 hr 03/27/20 12:45 03/27/20 12:48 03/27/20 12:56 Temperature 98.5 F 98.5 F Pulse Rate 102 H 102 H Respiratory Rate 14 Blood Pressure 144/74 H 144/74 H Pulse Oximetry 96 97 03/27/20 13:00 03/27/20 13:30 03/27/20 14:00 Temperature Pulse Rate 95 H 94 H 86 Respiratory Rate Blood Pressure 128/66 128/66 131/64 Pulse Oximetry 95 96 95 03/27/20 14:30 03/27/20 14:52 03/27/20 15:00 Temperature Pulse Rate 91 H 93 H 92 H Respiratory Rate Blood Pressure 127/65 128/64 Pulse Oximetry 98 98 97 03/27/20 15:30 03/27/20 16:00 03/27/20 16:34 Temperature Pulse Rate 91 H 91 H 99 H Respiratory Rate Blood Pressure 126/63 123/61 135/67 Pulse Oximetry 98 97 98 <Alem Dotson MD - Last Filed: 03/27/20 18:50> Orders Ordered: ED Orders 03/27/20 13:15 Complete Blood Count AUTO DIFF Stat Comprehensive Metabolic Panel Stat Magnesium Stat Discontinued Medications Sodium Chloride (Normal Saline 0.9%) 1,000 mls @ 1,000 mls/hr IV BOLUS ONE Stop: 03/27/20 13:58 Last Infusion: 03/27/20 14:45 Dose: 0 mls/hr Documented by: Admin: 03/27/20 13:35 Dose: 1,000 mls/hr Documented by: FELICIANO Sodium Chloride (Normal Saline 0.9%) 1,000 mls @ 1,000 mls/hr IV BOLUS ONE Stop: 03/27/20 15:28 Last Infusion: 03/27/20 16:31 Dose: 0 mls/hr Documented by: Admin: 03/27/20 14:50 Dose: 1,000 mls/hr Documented by: FELICIANO Ondansetron HCl (Ondansetron 4 Mg/2 Ml Inj) 4 mg IV NOW ONE Stop: 03/27/20 13:00 Last Admin: 03/27/20 13:35 Dose: 4 mg Documented by: FELICIANO Potassium Chloride (Potassium Chloride 20 Meq Tab) 40 meq PO NOW ONE Stop: 03/27/20 14:51 Last Admin: 03/27/20 15:26 Dose: 40 meq Documented by: FELICIANO Vital Signs Vital signs: Vital Signs - 8 hr 03/27/20 12:45 03/27/20 12:48 03/27/20 12:56 Temperature 98.5 F 98.5 F Pulse Rate 102 H 102 H Respiratory Rate 14 Blood Pressure 144/74 H 144/74 H Pulse Oximetry 96 97 03/27/20 13:00 03/27/20 13:30 03/27/20 14:00 Temperature Pulse Rate 95 H 94 H 86 Respiratory Rate Blood Pressure 128/66 128/66 131/64 Pulse Oximetry 95 96 95 03/27/20 14:30 03/27/20 14:52 03/27/20 15:00 Temperature Pulse Rate 91 H 93 H 92 H Respiratory Rate Blood Pressure 127/65 128/64 Pulse Oximetry 98 98 97 03/27/20 15:30 03/27/20 16:00 03/27/20 16:34 Temperature Pulse Rate 91 H 91 H 99 H Respiratory Rate Blood Pressure 126/63 123/61 135/67 Pulse Oximetry 98 97 98 MDM - Nausea/Vomiting/Diarrhea <CLAUDY Rice-BC - Last Filed: 03/27/20 18:48> Lab Data Attestation: I reviewed the patient's lab results. Result diagrams: 03/27/20 13:15 12/15/20 13:15 Labs: Lab Results 03/27/20 03/27/20 Range/Units 13:15 13:15 WBC 3.6 L (4.5-11.0) X10^3/uL RBC 4.48 L (4.5-5.9) X10^6/uL Hgb 15.1 (13.5-17.5) g/dL Hct 45.0 (41-53) % MCV 100.3 H (80-100) fL MCH 33.7 (26-34) PG MCHC 33.6 (30-36) % RDW 13.7 (11.6-14.8) % Plt Count 176 (150-400) X10^3/uL Neut % (Auto) 76.1 H (50-75) % Lymph % (Auto) 12.1 L (25-40) % [place] % (Auto) 11.4 (3-14) % Eos % (Auto) 0.2 L (2-4) % Baso % (Auto) 0.2 (0-2) % Neut # (Auto) 2700 (6785-1923) /uL Lymph # (Auto) 400 L (1194-3109) /uL [place] # (Auto) 400 (0-900) /uL Eos # (Auto) 0 (0-450) /uL Baso # (Auto) 0 (0-100) /uL Sodium 138 (137-145) mmol/L Potassium 3.2 L (3.4-5.1) mmol/L Chloride 103 (98-107) mmol/L Carbon Dioxide 25 (22-32) mmol/L BUN 24 H (9-20) mg/dL Creatinine 0.82 (0.66-1.25) mg/dL Estimated GFR > 60.0 (>60) mL/min BUN/Creatinine Ratio 29.3 H (6-22) Glucose 137 H (80-110) mg/dL Calcium 8.4 (8.4-10.2) mg/dL Magnesium 2.0 (1.6-2.3) mg/dL Total Bilirubin 0.7 (0.2-1.3) mg/dL AST 31 (17-59) IU/L ALT 24 (<50) IU/L Alkaline Phosphatase 51 (38-126) U/L Total Protein 7.0 (6.3-8.2) g/dL Albumin 4.4 (3.5-5.0) g/dL Globulin 2.6 (1.7-4.1) g/dL Albumin/Globulin Ratio 1.7 (1.0-2.8) MDM Narrative Medical decision making narrative: The patient is a 74-year-old male nonsmoker presents with a chief complaint of continued nausea vomiting and diarrhea since his visit 2 days ago. He has no lightheadedness or dizziness, he is not tachycardic, febrile denies any abdominal pain on repeat exams. He expresses frustration with his continued diarrhea. He had completely normal GI panel 2 days ago. Today his lab work is reassuring, no leukocytosis, maintaining good kidney and liver function. He had one episode of loose stool during his several our emergency department stay, had no episodes of vomiting. He was able to tolerate p.o. applesauce, p.o. juice, p.o. KCl. I discussed at length with him and his his negative results from a few days ago, the fact that he has maintained good kidney function, has stable vital signs with no evidence of tachycardia or hypotension and is this managing his loose stools very well at home. I encouraged continued use of Imodium, continued use of Zofran. Encouraged follow-up with primary care provider as well as his heme Onc provider. I discussed with patient that often times for unresolved diarrhea, colonoscopies will be performed if it does not get better in 4-6 weeks or so. I encouraged him to follow up with primary care provider regarding this. Discussed patient and labs at length with Dr. Dotson as she evaluated the patient 2 days ago. Did discuss at length coming back to the emergency department for any acute concerns such as inability keep down fluids despite nausea medication, abdominal pain with fever etcetera I did encourage the patient to use his ondansetron before taking his p.o. medication to see if that helps his stomach. Patient have no questions or concerns upon discharge and state understanding of return precautions as well as follow-up care. <Alem Dotson MD - Last Filed: 03/27/20 18:50> Lab Data Labs: Lab Results 03/27/20 03/27/20 Range/Units 13:15 13:15 WBC 3.6 L (4.5-11.0) X10^3/uL RBC 4.48 L (4.5-5.9) X10^6/uL Hgb 15.1 (13.5-17.5) g/dL Hct 45.0 (41-53) % MCV 100.3 H (80-100) fL MCH 33.7 (26-34) PG MCHC 33.6 (30-36) % RDW 13.7 (11.6-14.8) % Plt Count 176 (150-400) X10^3/uL Neut % (Auto) 76.1 H (50-75) % Lymph % (Auto) 12.1 L (25-40) % [place] % (Auto) 11.4 (3-14) % Eos % (Auto) 0.2 L (2-4) % Baso % (Auto) 0.2 (0-2) % Neut # (Auto) 2700 (0262-6357) /uL Lymph # (Auto) 400 L (5725-9148) /uL [place] # (Auto) 400 (0-900) /uL Eos # (Auto) 0 (0-450) /uL Baso # (Auto) 0 (0-100) /uL Sodium 138 (137-145) mmol/L Potassium 3.2 L (3.4-5.1) mmol/L Chloride 103 (98-107) mmol/L Carbon Dioxide 25 (22-32) mmol/L BUN 24 H (9-20) mg/dL Creatinine 0.82 (0.66-1.25) mg/dL Estimated GFR > 60.0 (>60) mL/min BUN/Creatinine Ratio 29.3 H (6-22) Glucose 137 H (80-110) mg/dL Calcium 8.4 (8.4-10.2) mg/dL Magnesium 2.0 (1.6-2.3) mg/dL Total Bilirubin 0.7 (0.2-1.3) mg/dL AST 31 (17-59) IU/L ALT 24 (<50) IU/L Alkaline Phosphatase 51 (38-126) U/L Total Protein 7.0 (6.3-8.2) g/dL Albumin 4.4 (3.5-5.0) g/dL Globulin 2.6 (1.7-4.1) g/dL Albumin/Globulin Ratio 1.7 (1.0-2.8) Discharge Plan Departure Patient Disposition: Home Clinical Impression: Nausea, Vomiting, and Diarrhea Instructions: DI for Diarrhea and Traveler's Diarrhea -- Adult, DI for Nausea -- Adult, DI for Vomiting -- Adult, Loperamide Activity Restrictions/Additional Instructions: Thank you for trusting us with your care today. As discussed, your lab work and vital signs are very reassuring. Please continue to take up to 6 Imodium per day as needed. Please continue to use the Zofran. I suggest taking the Zofran before your medications. Please follow-up with primary care provider in the next few days. As discussed, you may benefit from a colonoscopy if your loose stools do not get better. As discussed, please come back to the emergency department for abdominal pain with fever, inability keep down fluids etcetera Prescriptions: No Action anastrozole 1 MG tablet 1 mg PO EVERY OTHER DAY Qty: 0 RF: 0 testosterone [AndroGel] 1 % gel in packet 1 TP DAILY Qty: 0 RF: 0 CA PANTOTHENATE/FOLIC ACID/VIT (MULTIVITAMIN) 1 tab PO QDAY Qty: 0 RF: 0 CHOLECALCIFEROL (VITAMIN D3) (Vitamin D) 5,000 iu PO Q DAY Qty: 0 RF: 0 Fish Oil (#OMEGA 3) 1,000 mg PO Q DAY Qty: 0 RF: 0 Saw [place] 450 mg PO QDAY Qty: 0 RF: 0 tyrosine 500 MG capsule PO QDAY Qty: 0 RF: 0 magnesium oxide 250 mg magnesium Tablet 250 mg PO DAILY RF: 0 Cbd Cream RF: 0 Magnesium Oil RF: 0 imatinib [Gleevec] 400 MG tablet 800 mg PO Q DAY Qty: 180 RF: 3 ondansetron 4 mg tablet,disintegrating 4 mg PO Q8H PRN (Reason: nausea and vomiting) Qty: 20 RF: 0 Referrals: Ann Marie Weiner MD [Primary Care Provider] - <Alem Dotson MD - Last Filed: 03/27/20 18:50> [facility] Att[facility]: I was immediately available in the department for consultation throughout this patient's visit. I agree with documentation as above. Alem Dotson MD
[2020-03-27 13:24] LABS: Add Manual Diff / Slide Review NO; Basophils Absolute Auto 0 /uL (0-100); Basophils Percent Auto 0.2 % (0-2); Eosinophils Absolute Auto 0 /uL (0-450); Eosinophils Percent Auto 0.2 % (2-4); Hemoglobin 15.1 g/dL (13.5-17.5); Lymphocytes Absolute Auto 400 /uL (1100-4500); Lymphocytes Percent Auto 12.1 % (25-40); Mean Corpuscular HGB Conc 33.6 % (30-36); Mean Corpuscular Hemoglobin 33.7 PG (26-34); Mean Corpuscular Volume 100.3 fL (80-100); Monocytes Absolute Auto 400 /uL (0-900); Monocytes Percent Auto 11.4 % (3-14); Neutrophils Absolute Auto 2700 /uL (1500-7000); Neutrophils Percent Auto 76.1 % (50-75); Platelet Count 176 X10^3/uL (150-400); Red Blood Cell Count 4.48 X10^6/uL (4.5-5.9); Red Cell Distribution Width 13.7 % (11.6-14.8); White Blood Cell Count 3.6 X10^3/uL (4.5-11.0)
[2020-03-27] MEDS: SODIUM CHLORIDE 0.9% 1,000 ML 1000 ML IV ×2 (13:35→14:50)
[2020-03-27] MEDS: ONDANSETRON 4 MG/2 ML INJ IV (13:35)
[2020-03-27 13:38] LABS: Alanine Aminotransferase 24 IU/L (<50); Albumin 4.4 g/dL (3.5-5.0); Albumin Globulin Ratio 1.7 (1.0-2.8); Alkaline Phosphatase 51 U/L (38-126); Aspartate Aminotransferase 31 IU/L (17-59); BUN Creatinine Ratio 29.3 (6-22); Bilirubin Total 0.7 mg/dL (0.2-1.3); Blood Urea Nitrogen 24 mg/dL (9-20); Calcium 8.4 mg/dL (8.4-10.2); Carbon Dioxide 25 mmol/L (22-32); Chloride 103 mmol/L (98-107); Estimated Glomerular Filt Rate > 60.0 mL/min (>60); Globulin 2.6 g/dL (1.7-4.1); Glucose 137 mg/dL (80-110); HEMOLYSIS < 15 (0-50); Potassium 3.2 mmol/L (3.4-5.1); Sodium 138 mmol/L (137-145)
[2020-03-27] MEDS: POTASSIUM CHLORIDE 20 MEQ TAB 40 MEQ PO (15:26)
--- NOTE | 2020-03-27 15:50 | PC.NURSE ---
pt took PO potassium and one serving of applesauce
== END 2020-03-27 16:35 | disposition home or self-care (01) ==
PROVIDERS: Emergency Provider Nurse Practitioner Family; Family Provider Student in an Organized Health Care Education/Training Program; PCP Student in an Organized Health Care Education/Training Program
DX: R11.2 Nausea with vomiting, unspecified (principal); R19.7 Diarrhea, unspecified; C92.11 Chronic myeloid leukemia, BCR/ABL-positive, in remission
CPT/HCPCS: 36415; 80053; 83735; 85025; 96361; 96374; 99281; 99284; J2405

== ENCOUNTER → 2020-08-23 07:38 | Outpatient (CLI) | payer OTHER, SELFPAY ==
[2020-08-23 09:14] LABS: Hematocrit 41.4 % (41-53); Hemoglobin 13.9 g/dL (13.5-17.5)
[2020-08-23 09:54] LABS: Alanine Aminotransferase 16 IU/L (<50); Albumin 4.1 g/dL (3.5-5.0); Albumin Globulin Ratio 2.1 (1.0-2.8); Alkaline Phosphatase 40 U/L (38-126); Aspartate Aminotransferase 28 IU/L (17-59); BUN Creatinine Ratio 21.2 (6-22); Bilirubin Total 0.6 mg/dL (0.2-1.3); Blood Urea Nitrogen 21 mg/dL (9-20); Calcium 9.1 mg/dL (8.4-10.2); Carbon Dioxide 32 mmol/L (22-32); Chloride 104 mmol/L (98-107); Cholesterol 175 mg/dL (140-199); Estimated Glomerular Filt Rate > 60.0 mL/min (>60); Glucose 97 mg/dL (80-110); HDL Cholesterol 37 mg/dL (40-60); HEMOLYSIS < 15 (0-50); LDL Cholesterol Calculated 123 mg/dL (<100); Potassium 4.7 mmol/L (3.4-5.1); Sodium 141 mmol/L (137-145); Total Protein 6.1 g/dL (6.3-8.2); Triglycerides 76 mg/dL (35-150)
[2020-08-28 08:19] LABS: Testosterone Free 3.32 ng/dL (5.00-21.00); Testosterone Total 174.6 ng/dL (264.0-916.0)
== END ==
PROVIDERS: Family Provider Student in an Organized Health Care Education/Training Program; PCP Student in an Organized Health Care Education/Training Program; Referring Provider Urology; Visit Provider Urology
DX: E29.1 Testicular hypofunction (principal)
CPT/HCPCS: 36415; 80053; 80061; 84402; 84403; 85014; 85018

== ENCOUNTER → 2020-10-16 09:11 | Outpatient (CLI) | payer OTHER, SELFPAY ==
--- NOTE | 2020-10-16 09:13 | DI.RAD.S_ITS ---
PROCEDURE: XR HIP W PEL IF DONE RT 2V INDICATIONS: LT KNEE/RT HIP PAIN TECHNIQUE: To views of the right hip were acquired. COMPARISON: None. FINDINGS: Bones: Mild joint space narrowing in the right femoroacetabular joint with marginal osteophytosis. There is some subchondral sclerosis and cystic change in the right acetabular roof also. Findings are relatively symmetric to the left. Soft tissues: No suspicious soft tissue calcifications or masses. IMPRESSION: Mild bilateral femoroacetabular osteoarthritic change. Dictated by: Kurtis Bowman M.D. on 10/16/2020 at 10:16 Approved by: Kurtis Bowman M.D. on 10/16/2020 at 10:17
--- NOTE | 2020-10-16 09:13 | DI.RAD.S_ITS ---
PROCEDURE: XR KNEE LT 3V INDICATIONS: LT KNEE/RT HIP PAIN TECHNIQUE: 3 views of the knee were acquired. COMPARISON: None. FINDINGS: Bones: No acute fractures or dislocations. No suspicious bony lesions. A small enthesophyte is seen at the quadriceps tendon insertion. Mild degenerative changes are seen with mild narrowing of the medial compartment and tricompartmental tiny marginal osteophyte formation. Soft tissues: Small joint effusion. No suspicious soft tissue calcifications. IMPRESSION: 1. No acute osseous abnormality. If the symptoms persist, consider cross sectional imaging such as MRI or CT for further assessment. 2. Mild tricompartmental osteoarthrosis. 3. Small joint effusion. Dictated by: Kermit Garcia M.D. on 10/16/2020 at 11:16 Approved by: Kermit Garcia M.D. on 10/16/2020 at 11:31
== END ==
PROVIDERS: Family Provider Student in an Organized Health Care Education/Training Program; PCP Student in an Organized Health Care Education/Training Program; Referring Provider Student in an Organized Health Care Education/Training Program; Visit Provider Student in an Organized Health Care Education/Training Program
DX: M25.562 Pain in left knee (principal); M25.551 Pain in right hip; M17.12 Unilateral primary osteoarthritis, left knee; M25.462 Effusion, left knee
CPT/HCPCS: 73502; 73562

== ENCOUNTER 2021-03-09 13:51 | Emergency (ER) | payer OTHER, SELFPAY ==
[2021-03-09 14:03] VITALS: BP 135/70; PULSE 87; RESP 18; TEMP 36.8; O2SAT 96; BMI 25.7
--- NOTE | 2021-03-09 16:10 | ED_ITS ---
HPI - Nausea/Vomiting/Diarrhea <Brian Stewart PA-C - Last Filed: 03/09/21 17:32> General Chief complaint: Nausea/Vomiting/Diarrhea Stated complaint: diarrhea Time Seen by Provider: 03/09/21 15:21 Source: patient Mode of arrival: Ambulatory Limitations: no limitations History of Present Illness HPI Narrative: Patient is a 75-year-old male presenting to the emergency department today for evaluation diarrhea. Patient states that he began experiencing approximately 6 episodes of nonbloody diarrhea 2 days ago for which he treated himself with Imodium. He states that his diarrhea. Under control the next day, but he states that after lunch today he began to experience 3-4 further episodes of nonbloody diarrhea. Additionally, he notes that he has experienced intermittent episodes of nausea any states that he has felt ?gassy?. No fever, chills, chest pain, shortness of breath, cough, vomiting, abdominal pain, hematuria, dysuria reported. No other concerns voiced at this time. Patient denies recent travel, antibiotic use, or drinking from [place] water sources. Related Data Home Medications Medication Instructions Recorded Confirmed CA PANTOTHENATE/FOLIC ACID/VIT 1 tab PO QDAY #0 12/01/12 02/14/21 (MULTIVITAMIN) CHOLECALCIFEROL (VITAMIN D3) 5,000 iu PO Q DAY #0 12/01/12 02/14/21 (Vitamin D) Fish Oil (#OMEGA 3) 1,000 mg PO Q DAY #0 12/01/12 02/14/21 [place] 450 mg PO BID #0 12/01/12 02/14/21 testosterone (AndroGel) 1 packet TP DAILY #0 12/01/12 02/14/21 tyrosine 500 mg capsule 500 mg PO QDAY #0 12/08/16 02/14/21 Cbd Cream 1 tsp TOPICAL DAILY 09/14/18 02/14/21 Magnesium Oil 1 tbsp DAILY 09/14/18 02/14/21 magnesium oxide 250 mg PO DAILY 09/14/18 02/14/21 Lactobacil.acidophilus-Bifido.animalis 1 cap PO DAILY 04/11/20 02/14/21 5 billion cell sprinkle capsule (Probiotic) Previous Rx's Medication Instructions Recorded imatinib 400 mg tablet (Gleevec) 800 mg PO Q DAY #180 tab 01/31/21 Allergies Allergy/AdvReac Type Severity Reaction Status Date / Time naproxen [NAPROXEN] Allergy Severe SWELLING Verified 03/27/20 12:56 ALL OVER BODY lactose [LACTOSE] Allergy Unknown INDIGESTION, Verified 03/27/20 12:56 LOOSE STOOLS Review of Systems <Brian Stewart PA-C - Last Filed: 03/09/21 17:32> Constitutional Constitutional: Denies chills, Denies fatigue, Denies fever(s), Denies frequent falls, Denies lethargy and Denies weakness Eyes Eyes: Denies loss of vision ENT Ears, Nose, Mouth, and Throat: Denies dizziness Cardiovascular Cardiovascular: Denies chest pain, Denies irregular heart rhythm, Denies lightheadedness, Denies palpitations, Denies dyspnea, Denies dyspnea on exertion and Denies orthopnea Respiratory Respiratory: Denies cough, Denies dyspnea, Denies dyspnea on exertion and Denies wheezing Gastrointestinal Gastrointestinal: Denies abdominal pain, Denies melena, Denies hematochezia, Reports change in bowel habits, Reports diarrhea, Reports nausea and Denies vomiting Genitourinary Genitourinary: Denies hematuria, Denies flank pain, Denies urinary incontinence and Denies urinary urgency Musculoskeletal Musculoskeletal: Denies numbness and Denies tingling Neurologic Neurologic: Denies behavioral changes, Denies confusion, Denies dizziness, Denies frequent falls, Denies loss of vision, Denies numbness, Denies tingling and Denies weakness Psychiatric Psychiatric: Denies behavioral changes and Denies confusion Endocrine Endocrine: Denies fatigue and Denies palpitations Allergic/Immunologic Allergic/Immunologic: Denies wheezing Patient History <Brian Stewart PA-C - Last Filed: 03/09/21 17:32> Medical History CML in remission Social History Smoking Status: Never smoker Smoking Status: Never smoker alcohol intake frequency: 0-2 drinks per day Substance Use Type: does not use Exam <Brian Stewart PA-C - Last Filed: 03/09/21 17:32> Narrative Exam Narrative: GENERAL: 75 year old patient appears stated age. Well-developed patient, in no a cute distress. HEAD: Atraumatic. Normocephalic. EYES: Pupils equal round and reactive. Extraocular motions intact. No scleral icterus. No injection or drainage. ENT: Nose without bleeding, purulent drainage. Throat without erythema, tonsillar hypertrophy or exudate. Airway patent. NECK: Trachea midline. Non tender CARDIOVASCULAR: Regular rate and rhythm gallops, or rubs. Systolic murmur auscultated (patient states it has been there ?for years?). RESPIRATORY: Clear to auscultation. Breath sounds equal bilaterally. No wheezes, rales, or rhonchi. GASTROINTESTINAL: Abdomen soft, non-tender, nondistended. Bowel sounds active. No masses appreciated. EXTREMITIES: No edema or joint tenderness. BACK: Nontender without deformity or crepitance. No flank tenderness. NEURO: AOx3. SKIN: No rash or erythema of visible areas Initial Vital Signs Initial Vital Signs: Vital Signs Temperature 98.3 F 03/09/21 14:03 Pulse Rate 87 03/09/21 14:03 Respiratory Rate 18 03/09/21 14:03 Blood Pressure 135/70 03/09/21 14:03 Pulse Oximetry 96 03/09/21 14:03 <DO Cory Howard Last Filed: 03/09/21 17:40> Initial Vital Signs Initial Vital Signs: Vital Signs Temperature 98.3 F 03/09/21 14:03 Pulse Rate 87 03/09/21 14:03 Respiratory Rate 18 03/09/21 14:03 Blood Pressure 135/70 03/09/21 14:03 Pulse Oximetry 96 03/09/21 14:03 Course <Brian Stewart PA-C - Last Filed: 03/09/21 17:32> Course Course Narrative: GI panel ordered. Orders Ordered: ED Orders 03/09/21 15:59 GI Panel (Film Array) Stat Vital Signs Vital signs: Vital Signs - 8 hr 03/09/21 14:03 03/09/21 16:17 Temperature 98.3 F Pulse Rate 87 80 Respiratory Rate 18 18 Blood Pressure 135/70 118/66 Pulse Oximetry 96 99 <Jose L Barba DO - Last Filed: 03/09/21 17:40> Orders Ordered: ED Orders 03/09/21 15:59 GI Panel (Film Array) Stat Vital Signs Vital signs: Vital Signs - 8 hr 03/09/21 14:03 03/09/21 16:17 Temperature 98.3 F Pulse Rate 87 80 Respiratory Rate 18 18 Blood Pressure 135/70 118/66 Pulse Oximetry 96 99 MDM - Nausea/Vomiting/Diarrhea <Brian Stewart PA-C - Last Filed: 03/09/21 17:32> Lab Data Labs: Lab Results 03/09/21 Range/Units 15:59 Stl C. cayetanensis PCR Not detected (Not Detect) Stool Rotavirus (PCR) Not detected (Not Detect) Stool Adenovirus (PCR) Not detected (Not Detect) Stool Astrovirus (PCR) Not detected (Not Detect) Stool Cryptosporidium PCR Not detected (Not Detect) Stl E.coli Shiga Tox PCR Not detected (Not Detect) St Sh/Enteroin Ecoli PCR Not detected (Not Detect) Stool E coli O157 PCR Not detected (Not Detect) Stl Enterotoxigenic E PCR Not detected (Not Detect) Stool EPEC (PCR) Not detected (Not Detect) Stl E. histolytica PCR Not detected (Not Detect) Stool Giardia Lamblia PCR Not detected (Not Detect) Stool Sapovirus (PCR) Not detected (Not Detect) Stl P. shigelloides PCR Not detected (Not Detect) St Y.enterocolitica PCR Not detected (Not Detect) Stool Vibrio (PCR) Not detected (Not Detect) Stl Vibrio cholerae PCR Not detected (Not Detect) Stl Enteroaggr Ecoli PCR Not detected (Not Detect) Stl Norovirus GI/GII PCR Not detected (Not Detect) Campylobacter (PCR) Not detected (Not Detect) C. difficile Tox (PCR) Not detected (Not Detect) Salmonella (PCR) Not detected (Not Detect) MDM Narrative Medical decision making narrative: Patient is a 75-year-old male presenting to the emergency department today for evaluation diarrhea. To consider viral diarrhea versus gastroenteritis versus infectious diarrhea versus medication induced diarrhea. Overall physical examination is reassuring. Patient has remained afebrile and his vitals have remained stable in the emergency department. Additionally, he denies systemic symptoms. Discussed with the patient and his that we are ordering a GI panel, they prefer to be discharged home and await the results of the panel at home. Strict return precautions discussed with patient prior to discharge. <Jose L Barba DO - Last Filed: 03/09/21 17:40> Lab Data Labs: Lab Results 03/09/21 Range/Units 15:59 Stl C. cayetanensis PCR Not detected (Not Detect) Stool Rotavirus (PCR) Not detected (Not Detect) Stool Adenovirus (PCR) Not detected (Not Detect) Stool Astrovirus (PCR) Not detected (Not Detect) Stool Cryptosporidium PCR Not detected (Not Detect) Stl E.coli Shiga Tox PCR Not detected (Not Detect) St Sh/Enteroin Ecoli PCR Not detected (Not Detect) Stool E coli O157 PCR Not detected (Not Detect) Stl Enterotoxigenic E PCR Not detected (Not Detect) Stool EPEC (PCR) Not detected (Not Detect) Stl E. histolytica PCR Not detected (Not Detect) Stool Giardia Lamblia PCR Not detected (Not Detect) Stool Sapovirus (PCR) Not detected (Not Detect) Stl P. shigelloides PCR Not detected (Not Detect) St Y.enterocolitica PCR Not detected (Not Detect) Stool Vibrio (PCR) Not detected (Not Detect) Stl Vibrio cholerae PCR Not detected (Not Detect) Stl Enteroaggr Ecoli PCR Not detected (Not Detect) Stl Norovirus GI/GII PCR Not detected (Not Detect) Campylobacter (PCR) Not detected (Not Detect) C. difficile Tox (PCR) Not detected (Not Detect) Salmonella (PCR) Not detected (Not Detect) Discharge Plan Departure Patient Disposition: Home Clinical Impression: Acute diarrhea Instructions: Diarrhea Activity Restrictions/Additional Instructions: *You have been diagnosed with acute diarrhea *What to do: *Please continue to take your regular medications as directed. [ ] New medication prescriptions sent to your pharmacy: [ ] [ ] New medication written as a paper prescription [X] No new medications given *Please follow up with your primary care provider in 2-3 days, call for an appointment. Let them know you were seen in the Emergency Department and that we ask that you be seen in follow up. We will electronically transmit a record of today's note if your PCP is in our system *If you do not have a primary care provider please contact the [facility] Resource line at [phone]. They will ask some questions about your medical history and help get you set up with a doctor in the community. *Return to Emergency Department if you should have any new, worsening or concerning symptoms, such as fever greater than 101 F, shaking chills, worsening diarrhea, blood in diarrhea, persistent vomiting or other bothersome symptoms. Prescriptions: No Action testosterone [AndroGel] 1 % gel in packet 1 packet TP DAILY Qty: 0 0RF CA PANTOTHENATE/FOLIC ACID/VIT (MULTIVITAMIN) 1 tab PO QDAY Qty: 0 0RF CHOLECALCIFEROL (VITAMIN D3) (Vitamin D) 5,000 iu PO Q DAY Qty: 0 0RF Fish Oil (#OMEGA 3) 1,000 mg PO Q DAY Qty: 0 0RF [place] 450 mg PO BID Qty: 0 0RF tyrosine 500 MG capsule 500 mg PO QDAY Qty: 0 0RF magnesium oxide 250 mg magnesium Tablet 250 mg PO DAILY 0RF Cbd Cream 1 tsp topical DAILY 0RF Magnesium Oil 1 tbsp DAILY 0RF Probiotic 5 billion cell Capsule, Sprinkle 1 cap PO DAILY 0RF imatinib [Gleevec] 400 MG tablet 800 mg PO Q DAY Qty: 180 3RF Referrals: Ann Marie Weiner MD [Primary Care Provider] - <Jose L Barba DO - Last Filed: 03/09/21 17:40> Cosign ED Attending Cosignature Attestation: Dr Barba Co-Sign Statement: I was available for consultation during this patient's emergency department visit. This chart is signed by myself for administrative purposes only. I did not have direct contact with this patient during this visit. They were seen independently by the APC.
[2021-03-09 16:17] VITALS: BP 118/66; PULSE 80; RESP 18; O2SAT 99
[2021-03-09 17:29] LABS: Adenovirus F 40/41 Not Detected (Not Detect); Astrovirus Not Detected (Not Detect); Campylobacter Not Detected (Not Detect); Clostridium difficile toxin AB Not Detected (Not Detect); Cryptosporidium Not Detected (Not Detect); Cyclospora cayetanensis Not Detected (Not Detect); Entamoeba histolytica Not Detected (Not Detect); Enteroaggregative E.coli Not Detected (Not Detect); Enteropathogenic E.coli Not Detected (Not Detect); Enterotoxigenic E.coli It/st Not Detected (Not Detect); Giardia lamblia Not Detected (Not Detect); Norovirus GI/GII Not Detected (Not Detect); Plesiomonsa shigelloides Not Detected (Not Detect); Rotavirus A Not Detected (Not Detect); Salmonella Not Detected (Not Detect); Sapovirus Not Detected (Not Detect); Shiga-like toxin-prod E.coli Not Detected (Not Detect); Shigella/Enteroinvasive E.coli Not Detected (Not Detect); Vibrio Not Detected (Not Detect); Vibrio cholerae Not Detected (Not Detect); Yersinia enterocolitica Not Detected (Not Detect)
== END 2021-03-09 16:17 | disposition home or self-care (01) ==
PROVIDERS: Emergency Medicine; Emergency Provider Physician Assistant; Family Provider Student in an Organized Health Care Education/Training Program; PCP Student in an Organized Health Care Education/Training Program
DX: R19.7 Diarrhea, unspecified (principal)
CPT/HCPCS: 87507; 99281; 99283

== ENCOUNTER 2023-01-17 17:34 | Emergency (ER) | payer OTHER, SELFPAY ==
[2023-01-17 17:37] VITALS: BP 124/61; PULSE 88; RESP 18; TEMP 36.9; O2SAT 98; BMI 25.4
--- NOTE | 2023-01-17 17:41 | DI.RAD.S_ITS ---
PROCEDURE: XR ANKLE RT MIN 3V INDICATIONS: Ankle pain TECHNIQUE: 3 views of the ankle were acquired. COMPARISON: [facility], , ANKLE 3 VIEWS LEFT, 10/13/2009, 17:46. FINDINGS: Bones: No acute appearing fractures or dislocations. Ankle mortise is normally aligned. No suspicious bony lesions. The talar dome demonstrates no basilia abnormality. Age-appropriate bony degenerative changes are seen. There is a partially fused os trigonum. Incidental note is made of an enthesophyte at the Achilles insertion. Soft tissues: No tibiotalar joint effusion. Achilles tendon appears normal. IMPRESSION: Negative for acute fracture. Underlying degenerative changes are seen. If it would be helpful for clinical management decision making, please consider a dedicated, scheduled ankle MRI for further evaluation (assuming that there is no contraindication). Dictated by: Polo Meier M.D. on 01/17/2023 at 17:01 Approved by: Polo Meier M.D. on 01/17/2023 at 17:02
--- NOTE | 2023-01-17 18:35 | ED_ITS ---
HPI - Extremity Injury (Lower) <Alem Dotson MD - Last Filed: 01/18/23 10:05> General Chief Complaint: Extremity Injury, Lower Stated Complaint: rt ankle injury Time Seen by Provider: 01/17/23 18:31 Source: patient Mode of arrival: Ambulatory History of Present Illness HPI Narrative: 77-year-old gentleman with a history of leukemia currently on Gleevec doing well with no fevers, chills, recent traumas. He was walking into [facility] this afternoon and noticed that his right ankle was becoming increasingly tender and by the time he actually got into the story found that he could not bear any weight at all on the right ankle. There was no overt trauma. He comes in for further evaluation. He is never had similar findings. There is no history of gout. Again he is very specific about no trauma prior to the pain starting. Reports no fevers, shortness of breath, palpitations or chest pain Related Data Home Medications Medication Instructions Recorded Confirmed CA PANTOTHENATE/FOLIC ACID/VIT 1 tab PO QDAY ##0 12/01/12 07/10/22 (MULTIVITAMIN) CHOLECALCIFEROL (VITAMIN D3) 5,000 iu PO Q DAY ##0 12/01/12 07/10/22 (Vitamin D) Fish Oil (#OMEGA 3) 1,000 mg PO Q DAY ##0 12/01/12 07/10/22 Saw [place] 450 mg PO BID ##0 12/01/12 07/10/22 testosterone 1 % (25 mg/2.5 gram) 1 packet TP DAILY ##0 12/01/12 07/10/22 transdermal gel packet (AndroGel) tyrosine 500 mg capsule 500 mg PO QDAY ##0 12/08/16 07/10/22 Cbd Cream 1 tsp topical DAILY 09/14/18 07/10/22 Magnesium Oil 1 tbsp DAILY 09/14/18 07/10/22 magnesium oxide 250 mg PO DAILY 09/14/18 07/10/22 Lactobacil.acidophilus-Bifido.animalis 1 cap PO DAILY 04/11/20 07/10/22 5 billion cell sprinkle capsule (Probiotic) Previous Rx's Medication Instructions Recorded imatinib 400 mg tablet (Gleevec) 800 mg (2 x 400 mg) PO Q DAY #180 09/02/22 tabs Allergies Allergy/AdvReac Type Severity Reaction Status Date / Time naproxen [NAPROXEN] Allergy Severe SWELLING Verified 01/17/23 17:37 ALL OVER BODY lactose [LACTOSE] Allergy Unknown INDIGESTION, Verified 01/17/23 17:37 LOOSE STOOLS Review of Systems <Alem Dotson MD - Last Filed: 01/18/23 10:05> Review of Systems Narrative: Pertinent positive and negative findings as per HPI Patient History <Alem Dotson MD - Last Filed: 01/18/23 10:05> Medical History CML in remission Social History Smoking Status: Never smoker Smoking Status: Never smoker alcohol intake frequency: 0-2 drinks per day Substance Use Type: does not use Exam <Alem Dotson MD - Last Filed: 01/18/23 10:05> Initial Vital Signs Initial Vital Signs: Vital Signs Temperature 98.4 F 01/17/23 17:37 Pulse Rate 88 01/17/23 17:37 Respiratory Rate 18 01/17/23 17:37 Blood Pressure 124/61 01/17/23 17:37 Pulse Oximetry 98 01/17/23 17:37 Oxygen Delivery Method Room Air 01/17/23 17:37 General: Alert appropriate in no acute distress Respiratory: Able to speak in full sentences, no obvious respiratory distress Skin: No obvious rashes, warm and dry Neurologic: Grossly intact no obvious asymmetries or abnormalities Psych: appropriate insight and affect, cooperative Extremity: Right ankle is slightly more swollen than the left with a developing erythematous streak over the dorsum of the ankle and the foot concerning for developing cellulitis. There is no obvious skin break, vesicles or ulceration. He has full and symmetrical dorsalis pedis and posterior tibialis pulses. Neurovascularly intact to the toes. While the ankle is slightly swollen bilaterally it is not exquisitely tender as would be expected with gout <Kayli Ortega DO - Last Filed: 01/18/23 01:31> Initial Vital Signs Initial Vital Signs: Vital Signs Temperature 98.4 F 01/17/23 17:37 Pulse Rate 88 01/17/23 17:37 Respiratory Rate 18 01/17/23 17:37 Blood Pressure 124/61 01/17/23 17:37 Pulse Oximetry 98 01/17/23 17:37 Oxygen Delivery Method Room Air 01/17/23 17:37 Course <Alem Dotson MD - Last Filed: 01/18/23 10:05> Orders Ordered: Discontinued Medications Acetaminophen (Acetaminophen 325 Mg Tablet) 325 mg PO NOW ONE Stop: 01/17/23 18:41 Last Admin: 01/17/23 18:55 Dose: 325 mg Documented By: SOHAIL Ibuprofen (Ibuprofen 400 Mg Tablet) 400 mg PO NOW ONE Stop: 01/17/23 18:41 Last Admin: 01/17/23 18:54 Dose: 400 mg Documented By: SOHAIL Vital Signs Vital signs: Vital Signs - 8 hr 01/17/23 17:37 Temperature 98.4 F Pulse Rate 88 Respiratory Rate 18 Blood Pressure 124/61 Pulse Oximetry 98 Oxygen Delivery Method Room Air <Kayli Ortega DO - Last Filed: 01/18/23 01:31> Orders Ordered: Discontinued Medications Acetaminophen (Acetaminophen 325 Mg Tablet) 325 mg PO NOW ONE Stop: 01/17/23 18:41 Last Admin: 01/17/23 18:55 Dose: 325 mg Documented By: SOHAIL Ibuprofen (Ibuprofen 400 Mg Tablet) 400 mg PO NOW ONE Stop: 01/17/23 18:41 Last Admin: 01/17/23 18:54 Dose: 400 mg Documented By: SOHAIL Vital Signs Vital signs: Vital Signs - 8 hr 01/17/23 17:37 Temperature 98.4 F Pulse Rate 88 Respiratory Rate 18 Blood Pressure 124/61 Pulse Oximetry 98 Oxygen Delivery Method Room Air MDM - Extremity Injury (Lower) <Alem Dotson MD - Last Filed: 01/18/23 10:05> Lab Data 01/17/23 18:46 01/17/23 18:46 Labs: Lab Results 01/17/23 Range/Units 18:46 WBC 4.8 (4.5-11.0) X10^3/uL RBC 3.82 L (4.5-5.9) X10^6/uL Hgb 12.7 L (13.5-17.5) g/dL Hct 37.4 L (41-53) % MCV 97.9 (80-100) fL MCH 33.2 (26-34) PG MCHC 33.9 (30-36) % RDW 14.3 (11.6-14.8) % Plt Count 173 (150-400) X10^3/uL Neut % (Auto) 69.0 (50-75) % Lymph % (Auto) 16.2 L (25-40) % [place] % (Auto) 10.3 (3-14) % Eos % (Auto) 3.7 (2-4) % Baso % (Auto) 0.8 (0-2) % Neut # (Auto) 3300 (6895-6157) /uL Lymph # (Auto) 800 L (7097-9891) /uL [place] # (Auto) 500 (0-900) /uL Eos # (Auto) 200 (0-450) /uL Baso # (Auto) 0 (0-100) /uL ESR 8 (0-15) MM/HR Sodium 138 (137-145) mmol/L Potassium 4.0 (3.4-5.1) mmol/L Chloride 102 (98-107) mmol/L Carbon Dioxide 31 (22-32) mmol/L BUN 22 H (9-20) mg/dL Creatinine 0.93 (0.66-1.25) mg/dL Estimated GFR > 60 (>60) mL/min BUN/Creatinine Ratio 23.7 H (6-22) Glucose 109 (80-110) mg/dL Uric Acid 5.6 (3.5-8.5) mg/dL Calcium 9.0 (8.4-10.2) mg/dL Total Bilirubin 0.4 (0.2-1.3) mg/dL AST 28 (17-59) IU/L ALT 17 (<50) IU/L Alkaline Phosphatase 51 (38-126) U/L C-Reactive Protein 0.5 (<1.0) mg/dL Total Protein 6.0 L (6.3-8.2) g/dL Albumin 3.7 (3.5-5.0) g/dL Globulin 2.3 (1.7-4.1) g/dL Albumin/Globulin Ratio 1.6 (1.0-2.8) MDM Narrative Medical decision making narrative: CC: Acute nontraumatic right ankle pain Complicating co-morbidities: Leukemia in remission currently on Gleevec Data collected from: patient, son, Differential considered: Trauma, cellulitis, other infection, gout, arthritis Exam documented above, pertinent findings include: Mild swelling to the entire ankle and through the proximal midfoot with minor erythema developing over the dorsum of the foot concerning for developing cellulitis Lab Test results independently reviewed as above. Imaging studies independently reviewed: Ankle x-ray is unremarkable with the exception of underlying degenerative changes noted Discussion: Dr. Ortega: Patient signed out to me by Dr. Dotson I have seen evaluated patient myself. Right ankle and foot are not swollen no erythema no streaking mildly tender to touch. He took Tylenol and ibuprofen prior to arrival which has no seem to kick in. Concern due to ongoing CML, and atraumatic pain. X-ray is negative blood work has been reviewed overall reassuring no evidence of infection elevated markers or uric acid. At this time recommend supportive care only. May require outpatient MRI if pain continues. <Kayli Ortega, DO - Last Filed: 01/18/23 01:31> Lab Data Labs: Lab Results 01/17/23 Range/Units 18:46 WBC 4.8 (4.5-11.0) X10^3/uL RBC 3.82 L (4.5-5.9) X10^6/uL Hgb 12.7 L (13.5-17.5) g/dL Hct 37.4 L (41-53) % MCV 97.9 (80-100) fL MCH 33.2 (26-34) PG MCHC 33.9 (30-36) % RDW 14.3 (11.6-14.8) % Plt Count 173 (150-400) X10^3/uL Neut % (Auto) 69.0 (50-75) % Lymph % (Auto) 16.2 L (25-40) % [place] % (Auto) 10.3 (3-14) % Eos % (Auto) 3.7 (2-4) % Baso % (Auto) 0.8 (0-2) % Neut # (Auto) 3300 (1216-5828) /uL Lymph # (Auto) 800 L (1288-5853) /uL [place] # (Auto) 500 (0-900) /uL Eos # (Auto) 200 (0-450) /uL Baso # (Auto) 0 (0-100) /uL ESR 8 (0-15) MM/HR Sodium 138 (137-145) mmol/L Potassium 4.0 (3.4-5.1) mmol/L Chloride 102 (98-107) mmol/L Carbon Dioxide 31 (22-32) mmol/L BUN 22 H (9-20) mg/dL Creatinine 0.93 (0.66-1.25) mg/dL Estimated GFR > 60 (>60) mL/min BUN/Creatinine Ratio 23.7 H (6-22) Glucose 109 (80-110) mg/dL Uric Acid 5.6 (3.5-8.5) mg/dL Calcium 9.0 (8.4-10.2) mg/dL Total Bilirubin 0.4 (0.2-1.3) mg/dL AST 28 (17-59) IU/L ALT 17 (<50) IU/L Alkaline Phosphatase 51 (38-126) U/L C-Reactive Protein 0.5 (<1.0) mg/dL Total Protein 6.0 L (6.3-8.2) g/dL Albumin 3.7 (3.5-5.0) g/dL Globulin 2.3 (1.7-4.1) g/dL Albumin/Globulin Ratio 1.6 (1.0-2.8) MDM Narrative Medical decision making narrative: CC: Acute nontraumatic right ankle pain Complicating co-morbidities: Leukemia in remission currently on Gleevec Data collected from: patient, son, Differential considered: Trauma, cellulitis, other infection, gout, arthritis Exam documented above, pertinent findings include: Mild swelling to the entire ankle and through the proximal midfoot with minor erythema developing over the dorsum of the foot concerning for developing cellulitis Lab Test results independently reviewed as above. Pertinent findings: Imaging studies independently reviewed: Ankle x-ray is unremarkable with the exception of underlying degenerative changes noted Consultations: Treatments: Re-evaluations: Discussion: Dr. Ortega: Patient signed out to me by Dr. Dotson I have seen evaluated patient myself. Right ankle and foot are not swollen no erythema no streaking mildly tender to touch. He took Tylenol and ibuprofen prior to arrival which has no seem to kick in. Concern due to ongoing CML, and atraumatic pain. X-ray is negative blood work has been reviewed overall reassuring no evidence of infection elevated markers or uric acid. At this time recommend supportive care only. May require outpatient MRI if pain continues. Discharge Plan Departure Patient Disposition: Home Clinical Impression: Acute right ankle pain Instructions: DI for Ankle Pain Activity Restrictions/Additional Instructions: *You have been diagnosed with right ankle pain or sprain *What to do: At this time x-ray and blood work overall reassuring. Elevate and ice use crutches as needed. If pain continues you may require outpatient MRI *Continue to take medications as directed *Follow up with your primary care provider in 2-3 days or call [phone] *Return to ER if you should have increasing pain swelling redness fever or any new, worsening or concerning symptoms Prescriptions: No Action testosterone [AndroGel] 1 % gel in packet 1 packet TP DAILY Qty: 0 CA PANTOTHENATE/FOLIC ACID/VIT (MULTIVITAMIN) 1 tab PO QDAY Qty: 0 CHOLECALCIFEROL (VITAMIN D3) (Vitamin D) 5,000 iu PO Q DAY Qty: 0 Fish Oil (#OMEGA 3) 1,000 mg PO Q DAY Qty: 0 Saw [place] 450 mg PO BID Qty: 0 tyrosine 500 MG capsule 500 mg PO QDAY Qty: 0 imatinib [Gleevec] 400 MG tablet 800 mg PO Q DAY Qty: 180 3RF magnesium oxide 250 mg magnesium Tablet 250 mg PO DAILY Cbd Cream 1 tsp topical DAILY Magnesium Oil 1 tbsp DAILY Probiotic 5 billion cell Capsule, Sprinkle 1 cap PO DAILY Referrals: Ann Marie Weiner MD [Primary Care Provider] - Stand Alone Forms: Patient Portal/API
[2023-01-17 18:54] LABS: Add Manual Diff / Slide Review NO; Basophils Absolute Auto 0 /uL (0-100); Basophils Percent Auto 0.8 % (0-2); Eosinophils Absolute Auto 200 /uL (0-450); Eosinophils Percent Auto 3.7 % (2-4); Hematocrit 37.4 % (41-53); Hemoglobin 12.7 g/dL (13.5-17.5); Lymphocytes Absolute Auto 800 /uL (1100-4500); Lymphocytes Percent Auto 16.2 % (25-40); Mean Corpuscular HGB Conc 33.9 % (30-36); Mean Corpuscular Hemoglobin 33.2 PG (26-34); Mean Corpuscular Volume 97.9 fL (80-100); Monocytes Absolute Auto 500 /uL (0-900); Monocytes Percent Auto 10.3 % (3-14); Neutrophils Absolute Auto 3300 /uL (1500-7000); Platelet Count 173 X10^3/uL (150-400); Red Blood Cell Count 3.82 X10^6/uL (4.5-5.9); Red Cell Distribution Width 14.3 % (11.6-14.8); White Blood Cell Count 4.8 X10^3/uL (4.5-11.0)
[2023-01-17] MEDS: IBUPROFEN 400 MG TABLET PO (18:54)
[2023-01-17] MEDS: ACETAMINOPHEN 325 MG TABLET PO (18:55)
[2023-01-17 19:08] LABS: Alanine Aminotransferase 17 IU/L (<50); Albumin 3.7 g/dL (3.5-5.0); Albumin Globulin Ratio 1.6 (1.0-2.8); Alkaline Phosphatase 51 U/L (38-126); Aspartate Aminotransferase 28 IU/L (17-59); BUN Creatinine Ratio 23.7 (6-22); Bilirubin Total 0.4 mg/dL (0.2-1.3); Blood Urea Nitrogen 22 mg/dL (9-20); Carbon Dioxide 31 mmol/L (22-32); Chloride 102 mmol/L (98-107); Estimated Glomerular Filt Rate > 60 mL/min (>60); Globulin 2.3 g/dL (1.7-4.1); Glucose 109 mg/dL (80-110); HEMOLYSIS 24 (0-50); Sodium 138 mmol/L (137-145)
[2023-01-17 19:12] LABS: C-Reactive Protein Quant 0.5 mg/dL (<1.0); Uric Acid 5.6 mg/dL (3.5-8.5)
[2023-01-17 19:16] LABS: Erythrocyte Sedimentation Rate 8 MM/HR (0-15)
== END 2023-01-17 20:59 | disposition home or self-care (01) ==
PROVIDERS: Emergency Medicine; Emergency Provider Emergency Medicine; Family Provider Student in an Organized Health Care Education/Training Program; PCP Student in an Organized Health Care Education/Training Program
DX: M25.571 Pain in right ankle and joints of right foot (principal)
CPT/HCPCS: 36415; 73610; 80053; 84550; 85025; 85651; 86140; 99284

== ENCOUNTER → 2023-03-25 12:05 | Outpatient (ROUT) | payer OTHER, SELFPAY ==
[2023-03-25 13:13] LABS: Influenza A - CEPHEID Flu A NEGATIVE (NEGATIVE); Influenza B - CEPHEID Flu B NEGATIVE (NEGATIVE); Respiratory Syncytial Virus Negative (Negative)
[2023-03-25 13:26] LABS: COVID-19 CEPHEID 4-PLEX PCR Negative (Negative)
== END ==
PROVIDERS: Family Provider Student in an Organized Health Care Education/Training Program; PCP Student in an Organized Health Care Education/Training Program; Visit Provider Family Medicine
DX: R05.9 Cough, unspecified (principal); R52 Pain, unspecified
CPT/HCPCS: 0241U